=== PATIENT | male | born 1975 | race Caucasian/White ===

== ENCOUNTER 2017-05-20 05:37 | Emergency (ER) | payer MEDICAID, OTHER ==
[~2017-05-20] VITALS: Ht 170.2 cm; Wt 78.8 kg
[~2017-05-20 05:37] MED LIST: NO HOME MEDS
[2017-05-20 05:46] VITALS: BP 160/122
[2017-05-20] MEDS ORDERED: dexamethasone sod phosphate 10mg/ml inj IM STA (06:22)
[2017-05-20] MEDS ORDERED: PRED10TA23 PO (06:23)
== END 2017-05-20 06:41 | disposition home or self-care (01) ==
LOC: ER 05:38
DX: L25.5 Unspecified contact dermatitis due to plants, except food (principal); J45.909 Unspecified asthma, uncomplicated; F15.90 Other stimulant use, unspecified, uncomplicated; Z60.2 Problems related to living alone; Z88.2 Allergy status to sulfonamides
CPT/HCPCS: 96372; 99283; J1100

== ENCOUNTER 2017-06-29 14:33 | Emergency (ER) | payer MEDICAID, OTHER ==
[~2017-06-29] VITALS: Ht 170.2 cm; Wt 83.6 kg
[2017-06-29] MEDS ORDERED: DOXY100C2 PO (15:50)
[2017-06-29 16:08] VITALS: BP 143/114
== END 2017-06-29 16:08 | disposition home or self-care (01) ==
LOC: ER 14:33
DX: L02.512 Cutaneous abscess of left hand (principal); F15.10 Other stimulant abuse, uncomplicated; Z88.2 Allergy status to sulfonamides
CPT/HCPCS: 10060; 26010; 73140; 99284

== ENCOUNTER 2017-10-04 23:08 | Emergency (ER) | payer OTHER ==
[~2017-10-04] VITALS: Ht 170.2 cm; Wt 81.8 kg
[2017-10-04 23:11] VITALS: BP 142/106
[2017-10-04] MEDS ORDERED: azithromycin 250mg tablet PO ONE (23:25)
[2017-10-04] MEDS ORDERED: CefTRIAXone 250MG inj IM ONE (23:25)
[2017-10-04] MEDS ORDERED: CefTRIAXone 1000mg IM Kit (w/lidocaine diluent) IM ONE (23:45)
== END 2017-10-05 00:17 | disposition home or self-care (01) ==
LOC: ER 23:09
DX: R36.9 Urethral discharge, unspecified (principal); R21 Rash and other nonspecific skin eruption; R30.0 Dysuria; J45.909 Unspecified asthma, uncomplicated; F15.90 Other stimulant use, unspecified, uncomplicated; Z86.14 Personal history of Methicillin resistant Staphylococcus aureus infection; Z60.2 Problems related to living alone; Z88.2 Allergy status to sulfonamides
CPT/HCPCS: 36415; 87491; 87591; 96372; 99284; J0696

== ENCOUNTER 2017-12-22 13:45 | Emergency (ER) | payer OTHER ==
[~2017-12-22] VITALS: Ht 170.2 cm; Wt 66.0 kg
[2017-12-22 13:54] VITALS: BP 156/106
[2017-12-22] MEDS ORDERED: DOXY100C43 PO (14:38)
[2017-12-22] MEDS ORDERED: CefTRIAXone 250MG IM Kit w/LIDOcaine IM ONE (14:40)
[2017-12-22] MEDS ORDERED: ketorolac trometh inj. 60 MG/2 ML VIAL IM ONE (14:40)
[2017-12-22 15:31] LABS: CLARITY,URINE CLEAR (Clear); COLOR,URINE YELLOW (Yellow); GLUCOSE, URINE NEGATIVE (Neg); KETONES,URINE NEGATIVE (Neg); LEUKOCYTE ESTERASE ,URINE NEGATIVE (Neg); NITRITES, URINE NEGATIVE (Neg); OCCULT BLOOD,URINE LARGE (Neg); PROTEIN,URINE TRACE mg/dl (Neg); UA COLLECTION TYPE NON-SPECIFIED; UROBILINOGEN,URINE 0.2 E.U/dL (0.2-1.0)
[2017-12-22 15:37] LABS: BACTERIA,URINE NONE SEEN /HPF (Neg); RBC,URINE TNTC /HPF (0-2); SPERM FEW /HPF (NEGATIVE); SQUAMOUS EPITHELIAL CELL,UR FEW /LPF (FEW)
[2017-12-22 15:38] LABS: MUCUS STRANDS MODERATE /LPF (Neg)
== END 2017-12-22 14:59 | disposition home or self-care (01) ==
LOC: ER 13:45
DX: Z20.2 Contact with and (suspected) exposure to infections with a predominantly sexual mode of transmission (principal); M54.9 Dorsalgia, unspecified; R10.9 Unspecified abdominal pain; J45.909 Unspecified asthma, uncomplicated; F15.10 Other stimulant abuse, uncomplicated; Z88.2 Allergy status to sulfonamides; Z86.14 Personal history of Methicillin resistant Staphylococcus aureus infection
CPT/HCPCS: 36415; 81001; 87088; 87491; 87591; 96372; 99284; J0696; J1885

== ENCOUNTER 2019-01-23 15:17 | Emergency (ER) | payer SELFPAY | END 2019-01-23 19:10 | disposition left against medical advice (07) | LOC: ER 15:17 | DX: R21 Rash and other nonspecific skin eruption (principal); Z53.21 Procedure and treatment not carried out due to patient leaving prior to being seen by health care provider ==

== ENCOUNTER 2021-02-26 07:08 | Emergency (ER) | payer MEDICAID, OTHER ==
[~2021-02-26] VITALS: Ht 170.2 cm; Wt 77.3 kg
[2021-02-26 08:03] VITALS: BP 172/114
[2021-02-26] MEDS ORDERED: IBUP-1985 PO (09:30)
[2021-02-26] MEDS ORDERED: METH-797 PO (09:30)
== END 2021-02-26 09:34 | disposition home or self-care (01) ==
LOC: ER 07:08
DX: S29.019A Strain of muscle and tendon of unspecified wall of thorax, initial encounter (principal); G89.29 Other chronic pain; M54.9 Dorsalgia, unspecified; J45.909 Unspecified asthma, uncomplicated; Z88.2 Allergy status to sulfonamides; Z79.899 Other long term (current) drug therapy; X58.XXXA Exposure to other specified factors, initial encounter; Y93.89 Activity, other specified; Y92.89 Other specified places as the place of occurrence of the external cause; Y99.8 Other external cause status
CPT/HCPCS: 99283

== ENCOUNTER 2021-03-01 12:04 | Emergency (ER) | payer MEDICAID, OTHER ==
[~2021-03-01] VITALS: Ht 170.2 cm; Wt 76.0 kg
[~2021-03-01 12:04] MED LIST changes: +IBUP-1985 PO; +METH-797 PO
[2021-03-01 12:14] VITALS: BP 143/100
--- NOTE | 2021-03-01 12:51 | NUR ---
pt self splinting arm
[2021-03-01] MEDS ORDERED: HYDROcodone/acetaminophen 5mg/325mg tablet PO ONE (13:05)
[2021-03-01] MEDS ORDERED: HYDR-3965 PO (13:09)
== END 2021-03-01 13:54 | disposition home or self-care (01) ==
LOC: ER 12:05
DX: S52.292A Other fracture of shaft of left ulna, initial encounter for closed fracture (principal); M79.632 Pain in left forearm; J45.909 Unspecified asthma, uncomplicated; G89.29 Other chronic pain; F15.90 Other stimulant use, unspecified, uncomplicated; Z86.14 Personal history of Methicillin resistant Staphylococcus aureus infection; Z87.01 Personal history of pneumonia (recurrent); Z72.89 Other problems related to lifestyle; Z60.2 Problems related to living alone; Z90.89 Acquired absence of other organs; Z88.2 Allergy status to sulfonamides; Z79.899 Other long term (current) drug therapy; X58.XXXA Exposure to other specified factors, initial encounter; Y93.89 Activity, other specified; Y92.89 Other specified places as the place of occurrence of the external cause; Y99.8 Other external cause status
CPT/HCPCS: 29125; 73090; 99283

== ENCOUNTER 2021-03-24 01:03 | Emergency (ER) | payer MEDICAID, OTHER ==
[~2021-03-24] VITALS: Ht 170.2 cm; Wt 81.8 kg
[~2021-03-24 01:03] MED LIST changes: +HYDR-3965 PO
[2021-03-24 01:09] VITALS: BP 170/115
--- NOTE | 2021-03-24 02:00 | NUR ---
pt has plaster splint in place. removed coban and harjit wrap layer and elevated left arm. awaiting md orders
== END 2021-03-24 03:10 | disposition home or self-care (01) ==
LOC: ER 01:03
DX: M79.602 Pain in left arm (principal); J45.909 Unspecified asthma, uncomplicated; G89.29 Other chronic pain; F15.90 Other stimulant use, unspecified, uncomplicated; Z87.81 Personal history of (healed) traumatic fracture; Z86.14 Personal history of Methicillin resistant Staphylococcus aureus infection; Z87.01 Personal history of pneumonia (recurrent); Z72.89 Other problems related to lifestyle; Z79.899 Other long term (current) drug therapy; Z88.2 Allergy status to sulfonamides
CPT/HCPCS: 29105; 99283; 99285

== ENCOUNTER 2023-08-29 15:59 | Emergency (ER) | payer MEDICAID ==
[~2023-08-29] VITALS: Ht 170.2 cm; Wt 88.1 kg
[~2023-08-29 15:59] MED LIST changes: -HYDR-3965 PO
[2023-08-29 16:23] VITALS: BP 164/102; PULSE 98; RESP 16; TEMP 98.2; O2SAT 97
== END 2023-08-29 19:29 | disposition left against medical advice (07) ==
LOC: ER 16:00
DX: M25.562 Pain in left knee (principal); M25.512 Pain in left shoulder; M25.572 Pain in left ankle and joints of left foot; Z53.21 Procedure and treatment not carried out due to patient leaving prior to being seen by health care provider; V89.2XXA Person injured in unspecified motor-vehicle accident, traffic, initial encounter; Y93.89 Activity, other specified; Y92.89 Other specified places as the place of occurrence of the external cause; Y99.8 Other external cause status
CPT/HCPCS: 71045; 73030; 73110; 73564; 73610

== ENCOUNTER 2023-09-02 16:14 | Emergency (ER) | payer MEDICAID ==
[~2023-09-02] VITALS: Ht 170.2 cm; Wt 180.0 kg
[2023-09-02 16:40] VITALS: BP 204/134; PULSE 116; RESP 18; TEMP 98; O2SAT 98
== END 2023-09-02 22:01 | disposition left against medical advice (07) ==
LOC: ER 16:15
DX: R07.81 Pleurodynia (principal); Z53.21 Procedure and treatment not carried out due to patient leaving prior to being seen by health care provider; V89.2XXA Person injured in unspecified motor-vehicle accident, traffic, initial encounter; Y93.89 Activity, other specified; Y92.89 Other specified places as the place of occurrence of the external cause; Y99.8 Other external cause status